=== PATIENT | male | born 1965 | race Caucasian/White ===

== ENCOUNTER 2016-10-18 08:36 | Observation (INO) | payer OTHER ==
[2016-10-18] MEDS ORDERED: Aspirin Low Dose CHEW TAB* 81 MG PO ONE (09:41)
--- NOTE | 2016-10-18 10:10 | RAD ---
INDICATION: Dizziness COMPARISON: None TECHNIQUE: Noncontrast axial source images were acquired from the skull base to the vertex. FINDINGS: Ventricles/sulci: The ventricles and cisterns are normal in size and configuration for age. Brain parenchyma: There is no focal parenchymal finding, evidence of intracranial mass, or intracranial mass effect. Intracranial hemorrhage:None. Extra-axial spaces: There are no abnormal extra axial fluid collections or evidence of extra-axial mass. Calvarium: There is no calvarial fracture or other calvarial abnormality. Scalp: There is no evidence of scalp or extracalvarial soft tissue abnormality. Paranasal sinuses/mastoid: The paranasal sinuses and mastoid air cells are clear. Other: None. IMPRESSION: NEGATIVE EXAMINATION
[2016-10-18 10:33] LABS: Hematocrit 37 % (42-52); Hemoglobin 12.7 g/dl (14.0-18.0); Mean Corpuscular HGB Conc 34 g/dl (31-36); Mean Corpuscular Hemoglobin 28 pg (27-31); Mean Corpuscular Volume 80 fL (80-94); Mean Platelet Volume 7 um3 (7.4-10.4); Red Blood Count 4.63 10^6/ul (4.0-5.4); Red Cell Distribution Width 14 % (10.5-15); White Blood Count 8.6 10^3/ul (3.5-10.8)
--- NOTE | 2016-10-18 10:34 | RAD ---
INDICATION: Dizziness COMPARISON: February 03, 2010 TECHNIQUE: An AP portable view obtained at 1000 hours is submitted. FINDINGS: Bones/Soft Tissues: There are no acute bony findings. Cardiomediastinal: The cardiomediastinal silhouette is normal. Lungs: There are no infiltrates. Pleura: There are no pleural effusions. Other: None IMPRESSION: NO ACTIVE DISEASE.
[2016-10-18 10:49] LABS: Albumin 3.9 g/dL (3.2-5.2); Calcium 8.8 mg/dL (8.6-10.3); EGFR African American 131.1 (>60); EGFR Non-African American 101.9 (>60); Globulin 3.4 g/dL (2-4); Potassium 3.9 mmol/L (3.5-5.0); Total Bilirubin 0.7 mg/dL (0.2-1.0); Total Protein 7.3 g/dL (6.4-8.9)
[2016-10-18] MEDS: Heparin VIAL(*) 5000 UNITS/ML VIAL (FIVE THOUSAND) SUBCUT SCH ×2 (15:12→22:06)
[2016-10-18] MEDS: NS 0.9% 1000 ML* 1,000 ML IV SCH (16:19)
--- NOTE | 2016-10-18 16:32 | ECHO ---
Patient: WERO MADERA [facility] Rec#: [id number] : 1965 Date: 10/18/2016 Age: 51y Height: 190.5 cm / 75.0 in Weight: 122.47 kg / 269.9 lbs Sex: M BSA: 2.49 Room#: 444 Admit Date#: 10/18/2016 Type: Inpatient Referring: Isabel Pulliam Reading: Destini Su MD Manager Order: Khushi Mcgregor RDCS CC: Bryanna Aguilar MD Transthoracic Echocardiogram Indication: Syncope BP: 145/90 HR: 67 Rhythm: NSR Findings History: GERD,+ family history,NSTEMI 2009 with PCI at [facility]. Technical Comments: The study quality is fair. Completed at 1550. The study is technically limited due to patient body habitus. Left Ventricle: The left ventricular chamber size is normal. Posterior wall hypertrophy is observed. Global left ventricular wall motion and contractility are within normal limits. The estimated ejection fraction is 55-60%. Abnormal left ventricular diastolic function is observed. Left Atrium: The left atrium is mildly dilated. Right Ventricle: The right ventricle is slightly dilated. The right ventricular global systolic function is normal. Right Atrium: The right atrial cavity size is normal. Aortic Valve: The aortic valve is trileaflet. There is trace to mild aortic regurgitation.small eccentric jet. There is no evidence of aortic stenosis. Mitral Valve: The mitral valve leaflets appear normal. There is no evidence of mitral regurgitation. There is no evidence of mitral stenosis. Tricuspid Valve: The tricuspid valve leaflets are normal. There is no evidence of tricuspid valve regurgitation. There is no tricuspid stenosis. Pulmonic Valve: The pulmonic valve appears normal. There is no evidence of pulmonic regurgitation. There is no pulmonic stenosis. Pericardium: A pericardial fat pad is visualized. Aorta: There is no dilatation of the ascending aorta. There is no dilatation of the aortic arch. There is no dilation of the aortic root. Pulmonary Artery: The main pulmonary artery appears normal. Venous: The venous system is not well visualized. Conclusions The left ventricular chamber size is normal. Global left ventricular wall motion and contractility are within normal limits. The estimated ejection fraction is 55-60%. The right ventricular global systolic function is normal. All valves show good function. There is trace to mild aortic regurgitation.small eccentric jet. Prior echo not available to compare. Measurements Name Value Normal Range RVIDd (AP) 2D 2.8 cm (0.9 - 2.6) RVDdMajor (2D) 3.9 cm (2.2 - 4.4) RAd ISD 4CH 4.6 cm (3.4 - 4.9) RA (A4C)W 3.5 cm (2.9 - 4.6) IVSd (2D) 1 cm (0.6 - 1) LVPWd (2D) 1.2 cm (0.6 - 1) LVIDd (2D) 5 cm (3.6 - 5.4) LVIDs (2D) 3.7 cm - LV FS (2D) 25 % (25 - 45) Aortic Annulus 2.5 cm (1.4 - 2.6) Ao root diameter (2D) 3.3 cm (2.1 - 3.5) Ascending Ao 3.1 cm (2.1 - 3.4) Aortic arch 2.3 cm (1.8 - 3.4) Descending Ao 0.7 cm - LA dimension (AP) 2D 3.7 cm (2.3 - 3.8) LAd ISD 4CH 5.5 cm (2.9 - 5.3) LA ISD 4CH W 4.5 cm (2.5 - 4.5) Name Value Normal Range LA ESV SP 4CH (A/L) 64 ml - LA ESV SP 2CH (A/L) 28 ml - LA ESV BP (A/L) 46 ml - LA ESV BP (A/L) index 18.5 ml/m2 - LA ESV SP 4CH (MOD) 59 ml - LA ESV SP 2CH (MOD) 27 ml - Name Value Normal Range MV E-wave Vmax 0.8 m/sec - MV deceleration time 125 msec - MV A-wave Vmax 0.5 m/sec - MV E:A ratio 1.49 ratio - LV septal e' Vmax 0.07 m/sec - LV lateral e' Vmax 0.16 m/sec - LV E:e' septal ratio 11.42 ratio - LV E:e' lateral ratio 5 ratio - Name Value Normal Range AV Vmax 1.4 m/sec - AV VTI 31.2 cm - AV peak gradient 8.11 mmHg - AV mean gradient 4.17 mmHg - LVOT Vmax 1 m/sec - LVOT VTI 24.7 cm - LVOT peak gradient 3.71 mmHg - LVOT mean gradient 1.87 mmHg - Name Value Normal Range PV Vmax 0.9 m/sec - PV peak gradient 3.06 mmHg -
[2016-10-18] MEDS: Atorvastatin* 40 MG TAB PO SCH (17:27)
[2016-10-18] MEDS ORDERED: Dextrose 50% Syringe 50 ML* 25 GM/50 ML SYRINGE IV PUSH PRN (17:44)
[2016-10-18] MEDS ORDERED: Omeprazole CAP* 20 MG PO SCH (22:00)
[2016-10-18] MEDS: Metoprolol Tartrate TAB* 25 MG PO SCH (22:05)
[2016-10-18] MEDS: Lisinopril TAB* 10 MG PO SCH (22:06)
[2016-10-18] MEDS: Insulin LISPRO* 1 UNITS UNIT SUBCUT SCH (22:07)
--- NOTE | 2016-10-18 22:15 | HP ---
HISTORY AND PHYSICAL: DATE OF ADMISSION: 10/18/16 PROVIDER: Sha De La Rosa NP ATTENDING PHYSICIAN: Dr. Pierson *(report dictated by Sha De La Rosa NP). PRIMARY CARE PHYSICIAN: Dr. Ash. CHIEF COMPLAINT: Dizziness and presyncope. HISTORY OF PRESENT ILLNESS: Mr. Beck is a 51-year-old male with a past medical history of coronary artery disease, status post 2 stents in 2009, hypertension, hyperlipidemia, sleep apnea, and GERD who presents to the emergency department today with report of 2 to 3 days of dizziness and presyncopal feeling. Mr. Beck reports the last 3 to 4 weeks, he has had a mild cold and reporting some mild congestion with a left earache earlier this week that has since resolved, but he denies any fevers or chills, nausea, vomiting, diarrhea, or abdominal pain. He reports 3 days ago, he noted with position change, he would feel lightheaded going from lying to sitting or sitting to standing. When he stood, he felt like he was a little off balance, felt a little tipsy. Reports that it would resolve throughout the day and he would have a normal day of activity which include some hard labor and lifting. He reports 2 days ago, he did not experience any lightheadedness or dizziness. Then yesterday, he had intermittently throughout the day again most with position change and resolved throughout the day and was able to proceed with hard labor without any symptoms. Then last night around 2:30 a.m., he got up out of the bed, went to the bathroom and immediately felt dizzy when he stood. He said he went back to sleep and this morning when he woke up at 6 a.m. to get ready for work, he went to the bathroom, felt dizzy, sat on the toilet, continued to feel dizzy and felt that he was going to pass out with what he states is "darkening of vision." He reports that passed. He knew he wanted to come to the hospital, so he decided to take shower and states that the feeling that he is going to pass out happened again in the shower. His vision started to go black. He said he leaned against the shower wall, slowly resolved and his drove him to the emergency department for further evaluation. The patient reports he experienced it once in the emergency department where he was lying flat and sat up quickly, then the dizziness has resolved, and has not returned. He denies any shortness of breath or chest pain. He denies vision changes, weakness, numbness, tingling, denies headache. Reports good appetite. The patient does report very mild congestion which as he states "is not a big deal." Reports that his left ear pain has resolved. Denies sore throat. PAST MEDICAL HISTORY: 1. GERD. 2. Coronary artery disease, status post 2 stents placed in 2009 in [facility]. 3. Hypertension. 4. Hyperlipidemia. 5. Sleep apnea. No history of sleep study in the past. HOME MEDICATIONS: 1. Metoprolol tartrate 25 mg p.o. b.i.d. 2. Lisinopril 10 mg p.o. daily. 3. Aspirin EC low dose 81 mg p.o. daily. 4. Protonix 40 mg p.o. daily. 5. Fish oil 1600 mg p.o. daily. 6. Rosuvastatin calcium 40 mg p.o. daily. 7. Flaxseed oil 1000 mg p.o. daily. ALLERGIES: TETANUS TOXOIDS. FAMILY HISTORY: Positive family history coronary artery disease. SOCIAL HISTORY: Denies history of tobacco abuse. Rare alcohol use. 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 He is and lives at home with his and 2 children. His lists his as his healthcare proxy. REVIEW OF SYSTEMS: A 14-point review of systems was performed. All the pertinent positives and negatives are mentioned in the history of present illness. All the remaining systems are negative. PHYSICAL EXAMINATION GENERAL APPEARANCE: A 51-year-old male, sitting up in the emergency department stretcher, visiting with his , in no acute distress. Alert and oriented x3 , good historian. VITAL SIGNS: Temperature 98.3, heart rate 74, respirations 20, blood pressure 148/85. HEENT: Head is normocephalic, atraumatic. Pupils are equal and reactive to light. Oropharynx is clear. Moist mucous membranes. Good dentition. NECK: No cervical or supraclavicular lymphadenopathy. CARDIAC: S1, S2. No murmurs, rubs, or gallops appreciated. No lower extremity edema noted. 2+ DP pulses bilaterally. RESPIRATORY: Lungs are clear to auscultation bilaterally. Good aeration throughout. No accessory muscle use. ABDOMEN: Soft, nontender, nondistended. Normal bowel sounds x4. MUSCULOSKELETAL: Strength is 5/5 throughout. No clubbing or cyanosis is noted. Full range of motion in all extremities. NEURO: Cranial nerves II through XII are intact. Moves all extremities equally. Sensation to lower extremities is intact to light touch. No pronator drift. Tongue is midline. No facial droop. PSYCH: Alert and oriented x3. Appropriate to situation. SKIN: No rashes, lesions, or open wounds noted. Warm, pink, and dry. LABORATORY DATA AND DIAGNOSTIC STUDIES: WBC is 8.6, RBC 4.63, Hgb 12.7, Hct 37 , MCV 80, MCH 38, MCHC 34, RDW 14, platelet count 223. Sodium 132, potassium 3.9, chloride 102, carbon dioxide 24, anion gap 6, BUN 16, creatinine 0.80, glucose 218, lactic acid 1.3, calcium 8.8. Total bilirubin 0.70, AST 13, ALT 17 , alkaline phosphatase 89. Troponin 0.00. Total protein 7.3, albumin 3.9. Brain CT, impression: Negative exam. Chest x-ray, impression: No active disease. EKG, sinus rhythm with a rate of 63. No acute ischemic changes noted. ASSESSMENT AND PLAN: Mr. Beck is a 51-year-old male with a past medical history of coronary artery disease status post 2 stents placement, gastroesophageal reflux disease, hypertension, and sleep apnea possibly undiagnosed who presents to the emergency department with report of 3 days of intermittent dizziness and presyncopal sensation. 1. Presyncope/dizziness. The patient is mildly orthostatic on his vital signs. It is also noted that his sodium is 132. It is possible that he is hypovolemic, a little dehydrated and this is all being driven by a viral syndrome. I also note that his glucose is 218. Plan to admit the patient to telemetry to monitor for arrhythmias. We will continue the patient on his normal blood pressure medications and monitor him on telemetry and q.4 hour vital signs to see if the patient is dropping his blood pressure from his home medications. As well, we will obtain a transthoracic echocardiogram. I also note that his hemoglobin is down to 12.7. Do not have any comparison. Will add on a stool for occult blood and trend hemoglobins. Also with his elevated glucose, will add on a hemoglobin A1c. Plan to give the patient normal saline x2 L. We will trend her troponin. 2. Coronary artery disease. Initial troponin is flat at 0.00. No EKG changes noted. We will trend a second troponin, but have a low suspicion if this is acute coronary syndrome. Continue the patient on his home dose aspirin and metoprolol. 3. Hypertension. Continue the patient's home medications of metoprolol and lisinopril. Continue to monitor blood pressures. 4. Gastroesophageal reflux disease. Continue PPI. 5. Sleep apnea. Per the patient and his , he was noted to have sleep apnea in 2009 when he was admitted for acute coronary syndrome and has never followed up with a sleep study. Per , the patient has been refusing, will obtain a pulse oximetry recording overnight to see if the patient requires an outpatient sleep study. 6. Hyperlipidemia. Continue atorvastatin. 7. DVT prophylaxis. Heparin subcu. 8. Code status. Full code. The patient's is the healthcare proxy. TIME SPENT: Approximately 60 minutes were spent on this admission. This case was discussed with the attending physician, Dr. Pierson, who agrees with the plan of care. SHA DE LA ROSA NP CC: Dr. Ash* [id number]/[facility] #: [id number] KHARI
[2016-10-19] MEDS: NS 0.9% 1000 ML* 1,000 ML IV SCH (00:28)
[2016-10-19 05:40] LABS: Hematocrit 38 % (42-52); Hemoglobin 12.9 g/dl (14.0-18.0); Mean Corpuscular HGB Conc 34 g/dl (31-36); Mean Corpuscular Hemoglobin 28 pg (27-31); Mean Corpuscular Volume 82 fL (80-94); Mean Platelet Volume 7 um3 (7.4-10.4); Red Blood Count 4.68 10^6/ul (4.0-5.4); Red Cell Distribution Width 14 % (10.5-15); White Blood Count 6.5 10^3/ul (3.5-10.8)
[2016-10-19 05:56] LABS: BUN/Creatinine Ratio 15.1 (8-20); Calcium 8.8 mg/dL (8.6-10.3); EGFR African American 120.6 (>60); EGFR Non-African American 93.8 (>60)
[2016-10-19] MEDS: Heparin VIAL(*) 5000 UNITS/ML VIAL (FIVE THOUSAND) SUBCUT SCH ×2 (07:16→14:27)
--- NOTE | 2016-10-19 08:19 | DCNOTE ---
Subjective Date of Service: 10/19/16 Interval History: 1026: PATIENTS DISCHARGE WAS COMPLETED AND PATIENT HAD TWO SEPARATE RUNS OF VTACH - 10 BEAT AND 8 BEAT RUNS. HE WAS ASYMPTOMATIC AND DENIES CP OR DIZZINESS. PATIENT WILL NOW CONTINUE TO BE MONITORED OVERNIGHT ON TELE - DISCHARGE WAS CANCELED 0800: Patient was seen and evaluated at the bedside. He reports he feels like in normal state of health and would like to go home. He has not had any further episodes of dizziness or presycope. He has been ambulating around his room w/o difficulty. We discussed new diagnoses of diabetes, nee medication and diet. No CP, SOB, cough. Objective Active Medications: Aspirin (Aspirin Ec Low Dose*) 81 mg PO DAILY [facility] Atorvastatin Calcium (Lipitor*) 80 mg PO 1700 [facility] Last Admin: 10/18/16 17:27 Dose: 80 mg Dextrose (D50w Syringe 50 Ml*) 12.5 gm IV PUSH .FOR FS < 60 - SS PRN PRN Reason: FS < 60 Heparin Sodium (Porcine) (Heparin Vial(*)) 5,000 units SUBCUT Q8HR [facility] Last Admin: 10/19/16 07:16 Dose: 5,000 units Sodium Chloride (Ns 0.9% 1000 Ml*) 1,000 mls @ 125 mls/hr IV PER RATE [facility] Stop: 10/19/16 22:44 Last Admin: 10/19/16 00:28 Dose: 125 mls/hr Insulin Human Lispro (Humalog*) 0 units SUBCUT ACHS [facility] PRN Reason: Protocol Last Admin: 10/18/16 22:07 Dose: 3 unit Lisinopril (Prinivil Tab*) 10 mg PO DAILY [facility] Last Admin: 10/18/16 22:06 Dose: 10 mg Metoprolol Tartrate (Lopressor Tab*) 25 mg PO BID [facility] Last Admin: 10/18/16 22:05 Dose: 25 mg Omeprazole (Prilosec Cap*) 20 mg PO 2100 [facility] Last Admin: 10/18/16 22:06 Dose: 20 mg Vital Signs 10/18/16 10/18/16 10/18/16 12:30 13:00 13:30 Temperature Pulse Rate Respiratory 20 12 13 Rate Blood Pressure 156/98 135/78 132/81 (mmHg) O2 Sat by Pulse Oximetry 10/18/16 10/18/16 10/18/16 14:44 14:45 16:11 Temperature 97.8 F 98.9 F Pulse Rate 72 81 Respiratory 17 18 16 Rate Blood Pressure 179/97 150/83 (mmHg) O2 Sat by Pulse 99 98 Oximetry 10/18/16 10/18/16 10/18/16 20:00 20:27 23:42 Temperature 98.4 F 98.3 F Pulse Rate 69 61 Respiratory 20 16 20 Rate Blood Pressure 148/80 124/71 (mmHg) O2 Sat by Pulse 98 97 Oximetry 10/19/16 03:26 Temperature 97.6 F Pulse Rate 61 Respiratory 20 Rate Blood Pressure 135/99 (mmHg) O2 Sat by Pulse 100 Oximetry Oxygen Devices in Use Now: None Appearance: 51 yo male A+O x3 in NAD Eyes: No Scleral Icterus, PERRLA Ears/Nose/Mouth/Throat: NL Teeth, Lips, Gums Neck: NL Appearance and Movements; NL JVP Respiratory: Symmetrical Chest Expansion and Respiratory Effort, Clear to Auscultation Cardiovascular: NL Sounds; No Murmurs; No JVD, RRR, No Edema Abdominal: NL Sounds; No Tenderness; No Distention Extremities: No Edema, No Clubbing, Cyanosis Skin: No Rash or Ulcers, No Nodules or Sclerosis Neurological: Alert and Oriented x 3, NL Sensation, NL Gait, NL Muscle Strength and Tone Lines/Tubes/Other Access: Clean, Dry and Intact Peripheral IV Nutrition: Taking PO's Result Diagrams: 10/19/16 05:20 10/19/16 05:20 Microbiology and Other Data: Microbiology 10/18/16 15:11 Influenza Types A,B Antigen (CARLOS) - Final Nasal Specimen received for Influenza A/B Molecular testing Assess/Plan/Problems-Billing Assessment: 51 yo male with PMH of CAD s/p 2 stents in 2009, GERD, HTN who presented to the ED on 10/18 with 3 days of intermittent dizziness and presyncope sensation - Patient Problems (1) Dizziness/Pre-syncope Comment: - resolved. suspected dehydration and untreated DM-2 then pt had noted runs of vtach right before discharge in which he was asymptomatic to. - plan to check mg level and continue to monitor on tele overnight. (2) HTN (hypertension) Comment: - controlled on home meds - continue lisinopril and metoprolol (3) GERD (gastroesophageal reflux disease) Comment: - asymptomatic. continue PPI (4) DVT prophylaxis Comment: HSQ (5) Full code status Status and Disposition: - OBV. continue tele monitoring for noted Vtach. Possible DC tomorrow if medically stable
[2016-10-19] MEDS: Insulin LISPRO* 1 UNITS UNIT SUBCUT SCH ×3 (08:48→17:06)
[2016-10-19] MEDS ORDERED: Aspirin EC Low Dose* 81 MG TAB.EC PO SCH (09:00)
[2016-10-19] MEDS ORDERED: metFORMIN* 500 MG TAB PO SCH (09:00)
[2016-10-19] MEDS: Lisinopril TAB* 10 MG PO SCH (09:15)
[2016-10-19] MEDS: Metoprolol Tartrate TAB* 25 MG PO SCH (09:15)
[2016-10-19 10:39] LABS: Ferritin 11.8 ng/mL (24-336)
[2016-10-19 10:42] LABS: Folate 6.04 ng/mL (>3.99)
[2016-10-19] MEDS ORDERED: Ferrous Sulfate TAB* 325 MG PO SCH (11:00)
[2016-10-19] MEDS: Atorvastatin* 40 MG TAB PO SCH (17:10)
--- NOTE | 2016-10-19 18:57 | TRS ---
TRANSVERSE SUMMARY: DATE OF ADMISSION: 10/18/16 DATE OF DISCHARGE: 10/19/16 PROVIDER: Sha De La Rosa NP ATTENDING PHYSICIAN: FRANSISCO Albright (report dictated by Sha De La Rosa NP) PRIMARY CARE PROVIDER: Gia Ash MD TRANSFER TO: [facility] in [place], [place]. TRANSFER REASON: Nonsustained ventricular tachycardia in the setting of history of coronary artery disease with a normal LVEF of 55% to 60% with symptoms of dizziness and presyncope with possible need for EP study and higher level of care. DISCHARGE DIAGNOSES: 1. Presyncope/dizziness, found to have nonsustained ventricular tachycardia as well as mildly dehydrated, mild hyponatremia with positive orthostatic vital signs on admission, which resolved with IV fluids. 2. Type 2 diabetes, new diagnosis with a hemoglobin A1c of 7.8. 3. Normocytic anemia, iron deficiency with a negative stool for occult blood, started on iron supplements. 4. Possible undiagnosed sleep apnea, will require outpatient sleep study. SECONDARY DIAGNOSES: 1. Gastroesophageal reflux disease. 2. Coronary artery disease, status post 2 stents placed in 2009 at [place]. 3. Hypertension. 4. Hyperlipidemia. DISCHARGE MEDICATIONS: 1. Fish oil 1 tab p.o. daily. 2. Flaxseed oil 1 tab p.o. daily. 3. Rosuvastatin calcium 40 mg p.o. at bedtime. 4. Metoprolol tartrate 25 mg p.o. b.i.d. 5. Lisinopril 10 mg p.o. daily. 6. Aspirin EC low dose 81 mg p.o. daily. 7. Protonix 40 mg p.o. daily. 8. Insulin lispro sliding scale with fingerstick blood glucose a.c., at bedtime. MEDICATION TO BE PRESCRIBED AT DISCHARGE: Metformin 500 p.o. daily. Please note, the patient met with breastfeeding educator from [facility] in which he will follow up when he returns to [place]. He will discontinue the insulin and has already been set up with the glucometer and a prescription has been sent in for metformin to his pharmacy. He has a followup appointment at [facility] when he is discharged from [facility]. HISTORY OF PRESENT ILLNESS AND HOSPITAL COURSE: Please see history and physical by this author for full admission details, but in summary, this is a 51 -year-old male who presented to the emergency department yesterday on 2016 with a report of 3 days of intermittent dizziness and presyncopal sensation. The patient denied any syncopal episodes. He reported over the past 3 to 4 weeks, he did have a mild cold, which has been well controlled and had a left earache earlier in the week, which had resolved, but denied any fevers, chills, nausea, vomiting, diarrhea, or abdominal pain. He reported over the past 3 days, he would go from laying to sitting or sitting to standing and felt dizzy with the presyncopal sensation in which he would get "fuzzy head feeling" and feels that he was going to pass out. This also happened when he would be doing an activity, where he gets lightheadedness and a feeling that he is going to pass out with lacking of his vision then he would stop, and sit down , and that would resolve. The night before the patient presented to the emergency department, he reported he got up around 2:30 a.m., felt very dizzy, went to the bathroom, laid back down in the morning. He got out of the bed at 6 a.m., felt very dizzy going to the bathroom, sat down, and it did resolve. He then decided to come to the emergency department for further evaluation. 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 The patient was admitted to the hospitalist service and monitored on telemetry. The patient was noted to have mild positive orthostatic vital signs and mild hyponatremia of 132. He was given 2 L of normal saline overnight and orthostatic vital signs were rechecked this morning, which had resolved. On evaluation this morning, the patient denied having any further symptoms of dizziness or presyncopal sensation. On admission, the patient was noted to have a glucose of 218, hemoglobin A1c was checked, which resulted at 7.8. The patient reports he had a history of prediabetes in the past and the patient was diagnosed with type 2 diabetes and underwent appropriate education with our breastfeeding educator from [facility] as well as the patient has been treated with lispro insulin, but was started on metformin this morning as it was stopped, the patient's to be discharged home, so he did receive one dose of metformin this morning. As the patient was being discharged, the patient had a 10 beat run of nonsustained ventricular tachycardia that broke for a couple of beats then had an 8-beat run. The patient was asymptomatic to this and was lying in bed at that time this happened. I consulted Dr. Samayoa, recreational sports director, who consulted on the patient and thinks the patient should be transferred to a higher level of care for an EP study as the patient has a history of coronary artery disease and has a normal LVEF of 55% to 60%. The patient has not had any further runs of ventricular tachycardia since this morning. He is stable for transfer and agrees with the plan of care. The patient underwent a transthoracic echocardiogram, which showed "left ventricular chamber size is normal. Global left ventricular wall motion contractility are within normal limits. The estimated ejection fraction is 55% to 60%. The right ventricular global systolic function is normal. All valves show good function. There is [id number] aortic regurgitation. Small eccentric jet. No prior echo are available to compare to." The patient's troponin, cardiac enzymes were trended, all of which were 0.00, 0.01, and 0.01. The patient had an EKG, which showed normal sinus rhythm with a rate of 63. In comparison to prior EKG, no acute changes noted. On admission, the patient underwent a brain CT, which was a negative examination. Chest x-ray showed no active disease. The patient underwent an overnight pulse oximetry due to his history of undiagnosed sleep apnea. The patient has not undergone a sleep study, which he was instructed needs to be set up as an outpatient. The patient's pulse oximetry monitoring overnight did show that he desatted between 80% and 90% for 1.2% of the time and was greater than 90%, 98.8% of the time. I do believe that the patient would benefit from an outpatient sleep study as he may have undiagnosed sleep apnea. As well, the patient was noted to have a normocytic anemia with the hemoglobin of 12.7 and hematocrit of 37. On recheck this morning, H and H was the same. A stool for occult blood was sent, which was negative. The patient has not undergone a colonoscopy and it was discussed with the patient due to his age, he needs to be scheduled for an outpatient colonoscopy. Iron studies were added on, which does show the patient to have an iron level of 47, which is mildly low, normal TIBC, and a low ferritin. The patient was started on iron supplementation and was instructed to follow up with his primary care provider. The patient was negative for influenza A and B on admission. He has remained afebrile throughout hospitalization and hemodynamically stable. DISCHARGE PLAN: 1. Transfer the patient to [facility]. [employer], Dr. Benavides, has accepted the patient to his service to the telemetry unit. The patient is stable for transfer. 2. The patient has been set up for [facility] in [place], [place] for diabetes management and new education and does have a prescription for metformin 500 mg p.o. daily that was sent in to his pharmacy this morning. He has been set up with a glucometer through [facility] and has this information. 3. The patient will need an outpatient sleep study as well as a colonoscopy. TIME SPENT: Approximately 90 minutes was spent on this discharge. This case was discussed with the attending physician, Dr. Pierson, who agrees with plan of care. SHA DE LA ROSA NP CC: Dr. Ash* [id number]/[facility] #: [id number] KHARI
[2016-10-19 19:12] VITALS: BP 153/80
--- NOTE | 2016-10-19 20:19 | CONS ---
CC: Gia Ash MD CARDIOLOGY CONSULTATION: DATE OF CONSULT: 10/19/16 REFERRAL PHYSICIANS: Isabel Pulliam NP, and Lien Pierson DO. REASON FOR CARDIOLOGY CONSULTATION: Ventricular tachycardia and near syncope. HISTORY OF PRESENT ILLNESS: Mr. Beck is a pleasant 51-year-old gentleman with known history of CAD. He apparently had an WY in 2009 and had 2 stents placed, further details unknown. Of note, he is accompanied by his and his daughter with his verbal consent during this cardiology consultation. For the past 2 to 3 days, the patient has been having episodes of significant near syncope. He had a significant episode yesterday where he was walking to the bathroom and became very dizzy including when he sat on the toilet. His was planning to bring him to the hospital and the patient went to take a shower and nearly passed out. The patient was admitted to [facility] yesterday with WY ruled out. The patient had an echocardiogram today which showed normal left ventricular function, ejection fraction of 55% to 60% with mild left atrial dilatation and functionally benign heart valves. The patient had been feeling well and was going to be discharged today; however, at 10:02, the patient had an 8-beat run of ventricular tachycardia followed by a 9-beat run of a wide complex tachycardia, more consistent with an accelerated idioventricular rhythm. The patient did not have any symptoms at that time. He denies any chest pain or shortness of breath. The patient states he truly fainted at the age of 10 when he had suffered a right broken arm. PAST MEDICAL HISTORY: Includes CAD as described above with WY in the past and PCI in 2009, further details unknown. He was not able to continue to be followed by our practice because of insurance non-par concerns. The patient follows with his primary care physician, Dr. Ash, as part of the [facility] and I believe he is seeing [facility]ologists. Of note, his PCI was done at [facility] in 2009. Other past medical history includes hypertension, hyperlipidemia, and he has been diagnosed with diabetes during this admission. He also has a history of GERD and there is suspicion for sleep apnea with an overnight pulse oximetry fstudy rom last night pending at the time of dictation. OUTPATIENT MEDICATIONS: 1. Metoprolol tartrate 25 mg p.o. b.i.d. 2. Lisinopril 10 mg once a day. 3. Enteric-coated aspirin 81 mg once a day. 4. Protonix 40 mg once a day. 5. Fish oil 1600 mg once a day. 6. Rosuvastatin 40 mg once a day. 7. Flaxseed oil 1 g once a day. ALLERGIES TO MEDICATIONS: None. He is allergic to TETANUS TOXOIDS which caused swelling in his buttock when injected as a child. He denies shrimp, seafood, or dye allergy. FAMILY HISTORY: His father has had multiple coronary stents with a history of hypertension, hyperlipidemia. His paternal aunt has had open heart surgery. His mother has a history of hypertension and hyperlipidemia. His identical twin brother has a history of recent throat cancer due to HPV. No family history of diabetes or stroke. SOCIAL HISTORY: He does not smoke cigarettes, drink alcohol nor drink caffeine. He used to drink alcohol quite heavily up to 15 years ago, but now drinks no more than 3 times per year. He has been for 20 years. 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 He is a high school graduate. He does not do other exercises than what is required for his multiple jobs. ROS: 15 point ROS conducted in depth with the patient. He has occasional blood in his stools which he attributes to a hemmorhoid. He has never had a colonoscopy. Possible LIDYA with workup pend. All other ROS negative except as described above. PHYSICAL EXAM: Height 6 feet 3 inches, weight 273 pounds. Temperature 97.8 degrees Fahrenheit, pulse is 64, O2 saturation 99%, blood pressure ranges from 147/93 to 160/87. On general exam, he is a pleasant gentleman in no acute distress. HEENT shows the cranium is normocephalic and atraumatic. He has moist mucosal membranes. Neck veins are not distended. There are no carotid bruits. Visible skin warm and perfused. Affect appropriate. He appears oriented. No significant kyphoscoliosis on back exam. Lungs are clear to auscultation. No wheezes. No rales. Cardiac Exam: S1, S2. Regular rate. No significant murmurs, rubs, or gallops. PMI is nondisplaced. Abdomen: Soft , nondistended, appears benign. Extremities: Without significant edema. Pulses appear grossly intact. DIAGNOSTIC STUDIES/LAB DATA: A 12-lead EKG is reviewed, 10/18/06 at 8:53 a.m., which shows sinus rhythm at 63 beats per minute, within normal limits. Runs of wide complex tachycardia consistent with ventricular tachycardia as discussed above seen on telemetry. White blood cell count 6.5, hematocrit 38, platelet count 245. Sodium 134, potassium 4.0, chloride 103, bicarbonate 28, BUN 13, creatinine 0.86, glucose 162. Troponin was 0.01 followed by 0.01. IMPRESSION: Mr. Beck is a pleasant 51-year-old gentleman with a history of coronary artery disease with myocardial infarction in 2009 for which he had coronary PCI. He has normal LV function and no angina. He has been having significant near syncopal events recently and is found to have ventricular tachycardia. We have recommended him for an EP study, which we do not perform at this hospital for appropriate risk stratification as he may benefit from an ICD. There does not appear to be any clear reversible cause for his ventricular tachycardia. RECOMMENDATIONS: 1. We would recommend that the patient be transferred to [facility] with whom he has a relationship through his primary care physician and I believe he had seen cardiologists there in the past for EP study, because if he has inducible ventricular tachycardia, he likely would benefit from an ICD. In the meantime, we will continue aspirin, beta judith, statin therapy, MIGUE inhibitor, and would keep close tire buffer in place with appropriate therapy if his ventricular tachycardia were to recur. 2. The patient reports a history of blood in his stools at times which he has attributed to a hemorrhoid, but he has never had a colonoscopy. We would recommend he follow that up with his PCP. 3. Followup potential for obstructive sleep apnea with nocturnal pulse oximetry pending at the time of this dictation. The above was discussed in detail with the patient, his , and his daughter and they appear to be in agreement with these recommendations. [id number]/[facility] #: [id number] [facility] CENTERJess
--- NOTE | 2016-10-28 17:52 | ED ---
tyesha Mueller Timothy, scribed for Daniel Miranda MD on 10/18/16 at 0925 . Syncope/Near Syncope - HPI Summary HPI Summary: Donald Beck is a 51 yo male presenting to [facility] with dizziness for the past 3 days, leading to near syncope this morning at 0600. He attributed his dizziness to a lack of HTN medication for 2 days, originally. He states that when he felt dizzy, if he persisted in any activity he would begin to "black out ". Pt and his state that he was clammy last night, and had fever. He had blood work done at [place] recently. he states he is always hot, and has been since he was born. He is not in any current pain. He states he was breathing hard. He states there have been no recent changes to his BP medication. His is present in room. His MHx includes NM in 2009 with 2 stents, HTN, HLD, borderline DM. - History Of Current Complaint Chief Complaint: EDDizziness Time Seen by Provider: 10/18/16 09:12 Hx Obtained From: Patient Onset/Duration: Sudden Onset Timing: Constant Context: Witnessed Activity At Onset: At Rest Aggravating Factor(s): Nothing Alleviating Factor(s): Nothing Associated Signs And Symptoms: Diaphoresis, Dizzy, Other - heavy breathing - Allergies/Home Medications Allergies/Adverse Reactions: Allergies Allergy/AdvReac Type Severity Reaction Status Date / Time Tetanus Toxoids Allergy Unknown Verified 10/18/16 09:20 Reaction Details PMH/Surg Hx/FS Hx/Imm Hx Cardiovascular History: Reports: Hx Hypertension, Hx Myocardial Infarction, Other Cardiovascular Problems/Disorders - 2 stents Infectious Disease History: No Infectious Disease History: Denies: Traveled Outside the [place] in Last 30 Days - Family History Known Family History: Positive: Cardiac Disease, Hypertension, Diabetes - Social History 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 Alcohol Use: Rare Substance Use Type: Reports: None Smoking Status (MU): Never Smoked Tobacco Review of Systems Positive: Fever, Chills, Skin Diaphoresis Eyes: Negative Negative: Other - eye redness ENT: Negative Negative: Sore Throat Cardiovascular: Negative Negative: Chest Pain Respiratory: Negative Negative: Shortness Of Breath, Cough Gastrointestinal: Negative Negative: Abdominal Pain, Vomiting, Nausea Genitourinary: Negative Negative: dysuria, hematuria Musculoskeletal: Negative Negative: Edema - legs Skin: Negative Negative: Rash Neurological: Other - dizziness and near syncope Psychological: Normal All Other Systems Reviewed And Are Negative: Yes Physical Exam - Summary Physical Exam Summary: Constitutional: Well-developed, Well-nourished, Alert. (-) Distressed Skin: Warm, Dry HENT: Normocephalic; Atraumatic Eyes: Conjunctiva normal Neck: Musculoskeletal ROM normal neck. (-) JVD, (-) Stridor, (-) Tracheal deviation Cardio: Rhythm regular, rate normal, Heart sounds normal; Intact distal pulses; The pedal pulses are 2+ and symmetric. Radial pulses are 2+ and symmetric. (-) Murmur Pulmonary/Chest wall: Effort normal. (-) Respiratory distress, (-) Wheezes, (-) Rales Abd: Soft, (-) Tenderness, (-) Distension, (-) Guarding, (-) Rebound Musculoskeletal: (-) Edema Lymph: (-) Cervical adenopathy Neuro: Alert, Oriented x3 Psych: Mood and affect Normal Triage Information Reviewed: Yes Vital Signs On Initial Exam: Initial Vitals Temp Pulse Resp BP Pulse Ox 98.3 F 83 20 152/90 99 10/18/16 08:47 10/18/16 08:47 10/18/16 08:47 10/18/16 08:47 10/18/16 08:47 Vital Signs Reviewed: Yes - Madi Coma Scale Coma Scale Total: 15 Diagnostics - Vital Signs Vital Signs Temp Pulse Resp BP Pulse Ox 10/18/16 09:14 69 137/107 10/18/16 09:13 69 154/103 10/18/16 09:08 62 15 98 10/18/16 09:07 156/100 10/18/16 08:47 98.3 F 83 20 152/90 99 - Laboratory Result Diagrams: 10/18/16 10:18 10/18/16 10:18 Lab Statement: Any lab studies that have been ordered have been reviewed, and results considered in the medical decision making process. - Radiology CXR Xray Interpretation: No Acute Changes - IMPRESSION: NO ACTIVE DISEASE. Radiology Interpretation Completed By: Radiologist - CT brain CT Interpretation: No Acute Changes - IMPRESSION: NEGATIVE EXAMINATION CT Interpretation Completed By: Radiologist - EKG 0853 Cardiac Rate: NL - 63 BPM EKG Interpretation: NSR @ 63 BPM, no indication of STEMI. 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 Officer/Release Non-Paretic Hand: Both Correctly Best Gaze (Only Horizontal Eye Movement): Normal Visual Field Testing: No Visual Loss Facial Paresis-Pt to Smile & Close Eyes or Grimace Symmetry: Normal/Symmetrical Motor Function - Right Arm: No Drift-Holds 10 Seconds Motor Function - Left Arm: No Drift-Holds 10 Seconds Motor Function - Right Leg: No Drift-Holds 10 Seconds Motor Function - Left Leg: No Drift-Holds 10 Seconds Limb Ataxia-Must be out of Proportion to Weakness Present: Absent Sensory (Use Pinprick to Test Arms/Legs/Trunk/Face): Normal Best Language (Describe Picture, Name Items): No Aphasia Dysarthria (Read Several Words): Normal Extinction and Inattention: No Abnormality Total Score: 0 Course/Dx Assessment/Plan: Donald Beck is a 51 yo male presenting to [facility] with near syncope and dizziness for the past 3 days. After normal EKG and negative CXR, as well as clinical examination and discussion with Dr. Nunez he will be admitted to [facility] for dizziness, diaphoresis, and noncompliance with his medication. - Diagnoses Provider Diagnoses: Dizziness, Diaphoresis, Noncompliance with medication regimen - Physician Notifications Discussed Care Of Patient With: 1151 - Dr. Nunez (hospitalist) - discussed Pt condition, will admit Pt. Instructed by Provider To: Admit As Inpatient Discharge - Discharge Plan Condition: Stable Disposition: ADMITTED TO [facility] Referrals: Bryanna Aguilar MD [Primary Care Provider] - The documentation as recorded by the tyesha barker Timothy accurately reflects the service I personally performed and the decisions made by me, Daniel Miranda MD.
== END 2016-10-19 19:05 | disposition short-term general hospital (02) ==
LOC: ED 08:36 → MEDTELE 12:05
PROVIDERS: ADMIT Hospitalist; ATTEND Hospitalist
DX: R55 Syncope and collapse (principal); R42 Dizziness and giddiness; E11.9 Type 2 diabetes mellitus without complications; I25.10 Atherosclerotic heart disease of native coronary artery without angina pectoris; I10 Essential (primary) hypertension; K21.9 Gastro-esophageal reflux disease without esophagitis; G47.30 Sleep apnea, unspecified; E78.5 Hyperlipidemia, unspecified; I25.2 Old myocardial infarction; Z95.5 Presence of coronary angioplasty implant and graft
CPT/HCPCS: 36415; 70450; 71010; 80048; 80053; 82272; 82607; 82728; 82746; 83036; 83540; 83550; 83605; 83735; 84484; 85025; 87502; 93005; 93306; 94762; 96360; 96361; 96372; 99283; A9270-GY; G0378; J1644

== ENCOUNTER 2019-07-29 15:42 | Emergency (ER) | payer BC, OTHER ==
[2019-07-29 16:10] LABS: ABS Basophils 0.1 10^3/ul (0-0.2); ABS Eosinophils 0.2 10^3/ul (0-0.6); ABS Lymphocytes 1.6 10^3/ul (1.0-4.8); ABS Monocytes 0.4 10^3/ul (0-0.8); ABS Neutrophils 4.1 10^3/ul (1.5-7.7); Eosinophil % 3.4 %; Hematocrit 40 % (42-52); Hemoglobin 14.6 g/dL (14.0-18.0); Lymphocyte % 24.9 %; Mean Corpuscular HGB Conc 37 g/dL (31-36); Mean Corpuscular Hemoglobin 33 pg (27-31); Mean Corpuscular Volume 89 fL (80-94); Mean Platelet Volume 7.1 fL (7.4-10.4); Nucleated Red Blood Cells % 0.1; Platelet Count 281 10^3/uL (150-450); Red Blood Count 4.47 10^6 /uL (4.18-5.48); Red Cell Distribution Width 12 % (10-15); White Blood Count 6.4 10^3/uL (3.5-10.8)
[2019-07-29 16:17] LABS: INR 1.15 (0.82-1.09)
[2019-07-29 16:37] LABS: Albumin 4.3 g/dL (3.2-5.2); Calcium 9.4 mg/dL (8.6-10.3); Total Bilirubin 0.8 mg/dL (0.2-1.0)
[2019-07-29 16:43] LABS: Albumin/Globulin Ratio 1.4 (1-3); BUN/Creatinine Ratio 18.3 (8-20); EGFR African American 118.9 (>60); EGFR Non-African American 98.3 (>60); Globulin 3.1 g/dL (2-4); Total Protein 7.4 g/dL (6.4-8.9)
[2019-07-29 17:06] LABS: Potassium 4.2 mmol/L (3.5-5.0)
--- NOTE | 2019-07-29 19:12 | ED ---
Dizziness - HPI Summary HPI Summary: The patient is a 53 y/o M presenting to [facility] accompanied by with a chief complaint of intermittent episodes of lightheadedness for the last two weeks. He reports that the episodes last for a few minutes then subside but then return , and he thought that it could be secondary to exertion, but the symptoms are not aggravated by exertion. He states that today around 10:00 he was at work talking to his boss when he felt lightheaded, so he drank some water, and the sensation was relieved. Approximately 5-10 minutes later, the lightheadedness returned, and he then had left shoulder pain with paresthesias in the arm and jaw pain. He was concerned because he had a ME nine years ago with symptoms of jaw pain, chest pressure, and diaphoresis. However, he has not experienced any CP or SOB today. He is not in any pain now. He takes ASA daily. [employer] is in [place]. Last stress test two years ago. PMHx: ME with 2 stents, HTN, HLD, CAD, diabetes. FHx: cardiac disease. Nonsmoker, rare EtOH, no substance use. Medications reviewed. Allergies noted. - History Of Current Complaint Chief Complaint: EDChestPainROMI Stated Complaint: CHEST PAIN ARM PAIN SHOULDER PAIN Time Seen by Provider: 07/29/19 17:52 Hx Obtained From: Patient Timing: Intermittent Episode Lasting - mintues Severity Initially: Moderate Severity Currently: Mild Character: Lightheaded Aggravating Factor(s): Nothing Alleviating Factor(s): Nothing Associated Signs And Symptoms: Positive: Other: - pain in left shoulder and neck , paresthesias in left arm. Negative: Chest Pain, SOB - Allergies/Home Medications Allergies/Adverse Reactions: Allergies Allergy/AdvReac Type Severity Reaction Status Date / Time Tetanus Vaccines and Toxoid Allergy Swelling Verified 07/29/19 15:53 Home Medications: Home Medications Atenolol TAB* [Tenormin TAB* 25 MG] 25 mg PO DAILY 07/29/19 [History Confirmed 07/29/19] Atorvastatin* [Lipitor*] 80 mg PO DAILY 07/29/19 [History Confirmed 07/29/19] Fenofibrate(NF) [Tricor(NF)] 48 mg PO DAILY 07/29/19 [History Confirmed 07/29/19 ] PMH/Surg Hx/FS Hx/Imm Hx Endocrine/Hematology History: Reports: Hx Diabetes - 10/18/16 newly diagnosed, Hx Anemia Cardiovascular History: Reports: Hx Coronary Artery Disease, Hx Hypercholesterolemia, Hx Hypertension, Hx Myocardial Infarction, Other Cardiovascular Problems/Disorders - 2 stents GI History: Reports: Hx Gastroesophageal Reflux Disease Neurological History: Reports: Hx Migraine - hx - Surgical History Surgical History: Yes Surgery Procedure, Year, and Place: heart cath with stents 2009, pilondial cyst , inguinal hernia Infectious Disease History: No Infectious Disease History: Denies: Traveled Outside the [place] in Last 30 Days - Family History Known Family History: Positive: Cardiac Disease, Hypertension, Diabetes - Social History Alcohol Use: Rare Hx Substance Use: No Substance Use Type: Reports: None Hx Tobacco Use: No Smoking Status (MU): Never Smoked Tobacco Review of Systems Positive: Other - jaw pain Negative: Chest Pain Negative: Shortness Of Breath Positive: Myalgia - left shoulder Neurological: Other - lightheadedness Positive: Paresthesia - in the left arm All Other Systems Reviewed And Are Negative: Yes Physical Exam - Summary Physical Exam Summary: Constitutional: Well-developed, Well-nourished, Alert. (-) Distressed Skin: Warm, Dry HENT: Normocephalic; Atraumatic Eyes: Conjunctiva normal Neck: Musculoskeletal ROM normal neck. (-) JVD, (-) Stridor, (-) Nuchal rigidity Cardio: Rhythm regular, rate normal, Heart sounds normal; Intact distal pulses; Radial pulses are 2+ and symmetric. (-) Murmur Pulmonary/Chest wall: Effort normal. (-) Respiratory distress, (-) Wheezes, (-) Rales Abd: Soft, (-) tenderness, (-) Distension, (-) Guarding, (-) Rebound Musculoskeletal: (-) Edema Lymph: (-) Cervical adenopathy Neuro: Alert, Oriented x3 Psych: Mood and affect Normal Triage Information Reviewed: Yes Vital Signs On Initial Exam: Initial Vitals Temp Pulse Resp BP Pulse Ox 98.5 F 68 16 161/81 97 07/29/19 15:50 07/29/19 15:50 07/29/19 15:50 07/29/19 15:50 07/29/19 15:50 Vital Signs Reviewed: Yes Procedures - Sedation Patient Received Moderate/Deep Sedation with Procedure: No Diagnostics - Vital Signs Vital Signs Temp Pulse Resp BP Pulse Ox 07/29/19 17:27 99.1 F 72 16 147/92 95 07/29/19 15:50 98.5 F 68 16 161/81 97 - Laboratory Lab Results: Lab Results 07/29/19 07/29/19 07/29/19 Range/Units 15:53 15:53 15:53 WBC 6.4 (3.5-10.8) 10^3/uL RBC 4.47 (4.18-5.48) 10^6 /uL Hgb 14.6 (14.0-18.0) g/dL Hct 40 L (42-52) % MCV 89 (80-94) fL MCH 33 H (27-31) pg MCHC 37 H (31-36) g/dL RDW 12 (10-15) % Plt Count 281 (150-450) 10^3/uL MPV 7.1 L (7.4-10.4) fL Neut % (Auto) 64.1 % Lymph % (Auto) 24.9 % [place] % (Auto) 6.7 % Eos % (Auto) 3.4 % Baso % (Auto) 0.9 % Absolute Neuts (auto) 4.1 (1.5-7.7) 10^3/ul Absolute Lymphs (auto) 1.6 (1.0-4.8) 10^3/ul Absolute Monos (auto) 0.4 (0-0.8) 10^3/ul Absolute Eos (auto) 0.2 (0-0.6) 10^3/ul Absolute Basos (auto) 0.1 (0-0.2) 10^3/ul Absolute Nucleated RBC 0.0 10^3/ul Nucleated RBC % 0.1 INR (Anticoag Therapy) 1.15 H (0.82-1.09) Sodium 134 L (135-145) mmol/L Potassium 4.2 (3.5-5.0) mmol/L Chloride 103 (101-111) mmol/L Carbon Dioxide 25 (22-32) mmol/L Anion Gap 6 (2-11) mmol/L BUN 15 (6-24) mg/dL Creatinine 0.82 (0.67-1.17) mg/dL Est GFR ( Amer) 118.9 (>60) Est GFR (Non-Af Amer) 98.3 (>60) BUN/Creatinine Ratio 18.3 (8-20) Glucose 151 H (70-100) mg/dL Calcium 9.4 (8.6-10.3) mg/dL Total Bilirubin 0.80 (0.2-1.0) mg/dL AST 19 (13-39) U/L ALT 32 (7-52) U/L Alkaline Phosphatase 85 (34-104) U/L Troponin I 0.00 (<0.03) ng/mL Total Protein 7.4 (6.4-8.9) g/dL Albumin 4.3 (3.2-5.2) g/dL Globulin 3.1 (2-4) g/dL Albumin/Globulin Ratio 1.4 (1-3) Result Diagrams: 07/29/19 15:53 07/29/19 15:53 Lab Statement: Any lab studies that have been ordered have been reviewed, and results considered in the medical decision making process. - Radiology CXR Radiology Interpretation Completed By: Radiologist Summary of Radiographic Findings: CXR No acute abnormality. ED physician has reviewed and interpreted this imaging report. Pending official read. - EKG 1544 Cardiac Rate: NL - 67 BPM EKG Rhythm: Sinus Rhythm EKG Comparison: No Significant Change - Compared to 10/18/16, new T-wave inversions in aVF Summary of EKG Findings: An EKG at 1544 reveals normal sinus rhythm at 67 BPM. T -wave inversions in III and aVF. No STEMI. ED physician has reviewed and interpreted this EKG. 1930 Cardiac Rate: NL - 73 BPM EKG Rhythm: Sinus Rhythm EKG Comparison: No Significant Change - Compared to earlier today, no significant change Summary of EKG Findings: An EKG at 1930 reveals normal sinus rhythm at 73 BPM. T -wave inversions in III and aVF. No STEMI. ED physician has reviewed and interpreted this EKG. Re-Evaluation - Re-Evaluation First Eval Re-Evaluation Time: 19:53 Comment: We discussed all results. Patient would like to leave AMA. He understands all the risks. Dizzy Course/Dx - Course Course Of Treatment: 53 y/o male w hx ME s/p 2 stents, CAD, HLD, HTN p/w L arm pain and lightheadedness. - PE well-appearing, vital signs stable. Dizziness ddx: Differential diagnosis includes: Cardiac causes - will check EKG, troponin. Electrolyte disturbances - will check CMP. Anemia - will check CBC. regarding left arm tingling and jaw discomfort, discussed with patient concern for angina given history of ME in the past. Troponin negative here. EKG with new T-wave inversions in aVF. Patient states he does not want to stay , discussed with patient that this concerning that he may need additional stress test given that he has had an ME in the past. Patient is AAOx4 with clear sensorium, no signs of intoxication, no SI/HI, a normal gait and normal speech pattern and capacity to refuse care. I explained to the patient the risks of leaving AMA to include , disability, and loss of function. I had an extensive conversation with the patient regarding return precautions and encouraged them to return sooner for any worsening condition, new symptoms or ANY other concerns. - Diagnoses Provider Diagnoses: Chest pain Discharge ED - Sign-Out/Discharge Documenting (check all that apply): Patient Departure - Patient has decided to leave AMA. - Discharge Plan Condition: Stable Disposition: AGAINST MEDICAL ADVICE Patient Education Materials: Chest Pain (ED) Referrals: Gia Ash MD [Primary Care Provider] - 3 Days Additional Instructions: You were seen in the emergency department for chest pain. Your EKG (heart tracing) showed new changes which are concerning. We recommended you stay for a stress test, however you declined. Important that you follow up with you primary care doctor in the next 1-2 days to help schedule an outpatient stress test. Please return to the emergency department for continued chest pain, trouble breathing, passing out, or if you're concerned. - Billing Disposition and Condition Condition: STABLE Disposition: Against Medical Advice - Attestation Statements Document Initiated by Rocco: Yes Documenting Scribe: Navya Ledbetter Provider For Whom Rocco is Documenting (Include Credential): Dr. Amrit La MD Scribe Attestation: Navya Mueller scribed for Dr. Amrit La MD on 07/29/19 at 2222. Scribe Documentation Reviewed: Yes Provider Attestation: The documentation as recorded by the Navya barker accurately reflects the service I personally performed and the decisions made by me, Dr. Amrit La MD Status of Scribe Document: Viewed
[2019-07-29 20:26] VITALS: BP 149/82
== END 2019-07-29 19:29 | disposition left against medical advice (07) ==
LOC: ED 15:42
DX: R07.9 Chest pain, unspecified (principal); I25.10 Atherosclerotic heart disease of native coronary artery without angina pectoris; I10 Essential (primary) hypertension; E78.5 Hyperlipidemia, unspecified; E11.9 Type 2 diabetes mellitus without complications; D64.9 Anemia, unspecified; I25.2 Old myocardial infarction; K21.9 Gastro-esophageal reflux disease without esophagitis; Z95.5 Presence of coronary angioplasty implant and graft; Z79.82 Long term (current) use of aspirin; Z88.7 Allergy status to serum and vaccine; Z79.899 Other long term (current) drug therapy
CPT/HCPCS: 36415; 71046; 80053; 84484; 85025; 85610; 93005; 99283

== ENCOUNTER 2024-02-06 14:23 | Inpatient (IN) ==
[2024-02-06 14:51] LABS: ABS Basophils 0.1 10^3/uL (0.0-0.1); ABS Eosinophils 0.3 10^3/uL (0.0-0.5); ABS Lymphocytes 1.8 10^3/uL (1.0-4.8); ABS Monocytes 0.5 10^3/uL (0.0-1.1); ABS Neutrophils 8.3 10^3/uL (1.5-7.6); ABS Nucleated RBC 0.01 10^3/ul; Eosinophil % 2.9 %; Hematocrit 38.7 % (38-53); Hemoglobin 13.8 g/dL (13.2-16.3); Lymphocyte % 16.7 %; Mean Corpuscular Hemoglobin 30.8 pg (27-33); Mean Corpuscular Hgb Conc 35.7 g/dL (31-36); Mean Corpuscular Volume 86.5 fL (80-97); Platelet Count 359 10^3/uL (150-450); Red Blood Count 4.48 10^6/uL (4.06-5.63); Red Cell Distribution Width 12.9 % (12-17); White Blood Count 11.1 10^3/uL (3.6-10.2)
[2024-02-06] MEDS: Heparin 5000 UNITS/ML 1 mL VIAL IV SCH (15:01)
[2024-02-06] MEDS: Heparin DRIP 25,000 UNITS BAG 25,000 UNITS/250 ML BAG IV SCH (15:01)
[2024-02-06] MEDS: Morphine 2 MG/ML SYRINGE IV ONE (15:13)
[2024-02-06 15:19] LABS: Albumin 4.4 g/dL (3.2-5.2); Albumin/Globulin Ratio 1.4 (1-3); Creatinine, Serum 1.56 mg/dL (0.67-1.17); Globulin 3.1 g/dL (2-4); Potassium 4.3 mmol/L (3.5-5.0); Total Bilirubin 1.1 mg/dL (0.2-1.0); Total Protein 7.5 g/dL (6.4-8.9); eGFR CKD-EPI 51.2 (>60)
[2024-02-06] MEDS ORDERED: Naloxone 0.4 mg VIAL 0.4 mg/ml 1 ml VIAL IV PUSH PRN (15:52)
[2024-02-06] MEDS ORDERED: Flumazenil 0.5 mg/5 ml 0.1 MG/ML 5 ml VIAL IV PRN (15:52)
[2024-02-06] MEDS: NS 0.9% 1000 ml BAG 1,000 ML IV SCH (16:00)
[2024-02-06] MEDS: Lactated Ringers 1000 ml BAG 1,000 ML IV ONE (16:00)
[2024-02-06 16:04] LABS: High Sensitivity Troponin 1 Hr 115 pg/mL (<20)
[2024-02-06] MEDS ORDERED: VERAPAMIL 2.5 MG/ML 2 ML VIAL ** 5 mg/2 ml ONE (16:17)
[2024-02-06] MEDS ORDERED: Heparin 1,000 UNIT/ML 10 ml (10,000 UNITS) CATHLAB/DIALYSIS ONE ×2 (16:17→16:54)
[2024-02-06] MEDS ORDERED: nitroGLYCERIN DRIP 25,000 MCG/250 ML BTL ONE (16:18)
[2024-02-06] MEDS ORDERED: Midazolam 5 mg/5 ml VIAL 1 mg/ml 5 ml VIAL (5 mg) ONE (16:18)
[2024-02-06] MEDS ORDERED: fentaNYL 250 mcg/5 ml 50 MCG/ML 5 ml VIAL (250 MCG) ONE (16:18)
[2024-02-06] MEDS ORDERED: Heparin 2 UNITS/ML 1000 mls 3,000 ML IV ONE (16:18)
[2024-02-06] MEDS ORDERED: niCARdipine 0.1MG/ML IVPREMIX 20 MG/200 ML BAG IV ONE (16:24)
[2024-02-06] MEDS ORDERED: Iohexol 350 (CONTRAST) 200 ML MDV IV ONE (16:24)
[2024-02-06] MEDS ORDERED: Lidocaine 1% MPF 5 ML VIAL ONE (16:25)
[2024-02-06] MEDS ORDERED: Atropine 0.1 MG/ML 10 ml SYR (1 mg) ONE (16:52)
[2024-02-06] MEDS ORDERED: Eptifibatide IV (Load dose) 2 MG/ML 10 ml VIAL ONE ×2 (17:24→17:25)
[2024-02-06] MEDS ORDERED: Prasugrel 10 mg TAB (NF) ONE ×3 (17:47→17:49)
[2024-02-06] MEDS ORDERED: fentaNYL 100 mcg/2 ml 50 MCG/ML VIAL ONE (17:53)
[2024-02-06] MEDS ORDERED: oxyCODONE/Acetamin 5/325 mg TAB PO PRN (18:02)
[2024-02-06] MEDS ORDERED: Ondansetron 4 mg VIAL 2 MG/ML 2 ml VIAL IV PRN (18:02)
[2024-02-06] MEDS ORDERED: Dextrose 50% Syringe 50 ml 25 GM/50 ML SYRINGE IV PUSH PRN (18:44)
[2024-02-06] MEDS: fentaNYL 100 mcg/2 ml 50 MCG/ML VIAL IV SLOW PU ONE (19:40)
[2024-02-06] MEDS: Midazolam 10 mg/10 ml VIAL 1 mg/ml 10 ml VIAL (10 mg) IV SLOW PU ONE (19:43)
[2024-02-06] MEDS: Sulfur Hexaflouride MICROSPHR 25 MG VIAL IV ONE (21:07)
[2024-02-06] MEDS: NF:ICOSAPENT ETHYL 1 GM CAPSULE (NF) PO SCH (22:17)
[2024-02-07 01:20] LABS: Anion Gap 10 mmol/L (2-16); Blood Urea Nitrogen 24 mg/dL (6-24); CO2 Carbon Dioxide 22 mmol/L (22-32); Chloride 99 mmol/L (101-111); Creatinine, Serum 1.31 mg/dL (0.67-1.17); Glucose 274 mg/dL (70-100); Sodium 131 mmol/L (135-145); eGFR CKD-EPI 63.1 (>60)
[2024-02-07 05:14] LABS: Magnesium 1.7 mg/dL (1.9-2.7); Potassium Redraw 3.9 mmol/L (3.5-5.0)
[2024-02-07 06:18] LABS: ABS Basophils 0.1 10^3/uL (0.0-0.1); ABS Eosinophils 0.4 10^3/uL (0.0-0.5); ABS Lymphocytes 2.2 10^3/uL (1.0-4.8); ABS Monocytes 0.5 10^3/uL (0.0-1.1); Eosinophil % 4.5 %; Hematocrit 36.4 % (38-53); Hemoglobin 13.1 g/dL (13.2-16.3); Lymphocyte % 23.5 %; Mean Corpuscular Hemoglobin 31.1 pg (27-33); Mean Corpuscular Volume 86.5 fL (80-97); Platelet Count 305 10^3/uL (150-450); Red Blood Count 4.21 10^6/uL (4.06-5.63); White Blood Count 9.2 10^3/uL (3.6-10.2)
[2024-02-07 06:38] LABS: Albumin 3.9 g/dL (3.2-5.2); Albumin/Globulin Ratio 1.3 (1-3); Creatinine, Serum 1.16 mg/dL (0.67-1.17); Globulin 2.9 g/dL (2-4); HDL Cholesterol 27.3 mg/dL; Total Bilirubin 0.7 mg/dL (0.2-1.0); Total Protein 6.8 g/dL (6.4-8.9)
[2024-02-07] MEDS: Aspirin EC 81 mg TAB.EC (enteric coated) PO SCH (08:10)
[2024-02-07] MEDS: Empagliflozin 25 MG TAB PO SCH (08:11)
[2024-02-07] MEDS: Prasugrel 10 mg TAB (NF) PO SCH (08:11)
[2024-02-07] MEDS: OMEGA PO SCH (08:14)
[2024-02-07] MEDS: [UNRECOGNIZED DRUG - OTHER] PO SCH (08:14)
[2024-02-07] MEDS ORDERED: Dextrose 50% Syringe 50 ml 25 GM/50 ML SYRINGE IV PUSH PRN (08:48)
[2024-02-07] MEDS: Sulfur Hexaflouride MICROSPHR 25 MG VIAL IV ONE (09:10)
[2024-02-07] MEDS: Insulin GLARGINE 100 un/ml 10 ml VIAL SUBCUT SCH (09:41)
[2024-02-07] MEDS: Magnesium Sulfate 2 gm BAG 2 GM/50 ML BAG IVPB ONE (09:42)
[2024-02-07] MEDS: Magnesium Sulfate IV 1GM/100ML 1 GM/100 ML BAG IV ONE (11:28)
[2024-02-07] MEDS: Enoxaparin 40 MG/0.4 ML SYR SUBCUT SCH (20:38)
[2024-02-08 04:50] LABS: ABS Basophils 0.1 10^3/uL (0.0-0.1); ABS Eosinophils 0.4 10^3/uL (0.0-0.5); ABS Lymphocytes 2.1 10^3/uL (1.0-4.8); ABS Monocytes 0.5 10^3/uL (0.0-1.1); ABS Neutrophils 5.8 10^3/uL (1.5-7.6); ABS Nucleated RBC 0.01 10^3/ul; Eosinophil % 4.1 %; Hematocrit 38.2 % (38-53); Hemoglobin 13.5 g/dL (13.2-16.3); Lymphocyte % 23.8 %; Mean Corpuscular Hgb Conc 35.4 g/dL (31-36); Mean Corpuscular Volume 87.6 fL (80-97); Mean Platelet Volume 6.9 fL (7.5-11.2); Nucleated Red Blood Cells % 0.1 %/100WBC (0.0-0.8); Platelet Count 318 10^3/uL (150-450); Red Blood Count 4.36 10^6/uL (4.06-5.63); White Blood Count 8.9 10^3/uL (3.6-10.2)
[2024-02-08 05:25] LABS: Creatinine, Serum 1.26 mg/dL (0.67-1.17); Magnesium 2.2 mg/dL (1.9-2.7); Potassium 4.3 mmol/L (3.5-5.0); eGFR CKD-EPI 66.1 (>60)
[2024-02-08] MEDS ORDERED: Midazolam 5 mg/5 ml VIAL 1 mg/ml 5 ml VIAL (5 mg) ONE (08:48)
[2024-02-08] MEDS ORDERED: fentaNYL 100 mcg/2 ml 50 MCG/ML VIAL ONE ×2 (08:48→10:11)
[2024-02-08] MEDS ORDERED: nitroGLYCERIN DRIP 25,000 MCG/250 ML BTL ONE (08:50)
[2024-02-08] MEDS ORDERED: Heparin 1,000 UNIT/ML 10 ml (10,000 UNITS) CATHLAB/DIALYSIS ONE ×2 (08:50→09:38)
[2024-02-08] MEDS ORDERED: Heparin 2 UNITS/ML 1000 mls 2,000 ML IV ONE (08:50)
[2024-02-08] MEDS ORDERED: Lidocaine 1% MPF 5 ML VIAL ONE (08:50)
[2024-02-08] MEDS ORDERED: Iohexol 350 (CONTRAST) 200 ML MDV IV ONE (08:51)
[2024-02-08] MEDS ORDERED: niCARdipine 0.1MG/ML IVPREMIX 20 MG/200 ML BAG IV ONE (08:51)
[2024-02-08] MEDS ORDERED: Naloxone 0.4 mg VIAL 0.4 mg/ml 1 ml VIAL IV PUSH PRN (09:00)
[2024-02-08] MEDS ORDERED: Flumazenil 0.5 mg/5 ml 0.1 MG/ML 5 ml VIAL IV PRN (09:00)
[2024-02-08] MEDS ORDERED: Heparin 2 UNITS/ML 1000 mls 1,000 ML IV ONE (09:01)
[2024-02-08] MEDS: Midazolam 10 mg/10 ml VIAL 1 mg/ml 10 ml VIAL (10 mg) IV SLOW PU ONE (09:21)
[2024-02-08] MEDS: fentaNYL 100 mcg/2 ml 50 MCG/ML VIAL IV SLOW PU ONE (09:21)
[2024-02-08] MEDS ORDERED: Iohexol 350 (CONTRAST) 100 ML PAK IV ONE (10:11)
[2024-02-08] MEDS: NS 0.9% 1000 ml BAG 1,000 ML IV ONE (10:55)
[2024-02-08] MEDS: Insulin GLARGINE 100 un/ml 10 ml VIAL SUBCUT SCH (12:11)
[2024-02-08] MEDS ORDERED: Dextrose 50% Syringe 50 ml 25 GM/50 ML SYRINGE IV PUSH PRN (12:53)
[2024-02-08 15:55] VITALS: BP 121/77
[2024-02-09] MEDS ORDERED: Insulin GLARGINE 100 un/ml 10 ml VIAL SUBCUT SCH (09:00)
== END 2024-02-08 17:00 | disposition home or self-care (01) | DRG 174 ==
LOC: ED 14:23 → EDHOLD 15:56 → ICU 17:16
PROVIDERS: ADMIT Internal Medicine; ATTEND Internal Medicine